=== PATIENT | female | born 1985 | race Caucasian/White ===

== ENCOUNTER → 2020-07-01 13:24 | Outpatient (CLI) | payer OTHER, SELFPAY ==
[2020-07-01 17:00] LABS: COVID19 -Nasal RAPID Negative (Negative)
== END ==
PROVIDERS: Visit Provider Student in an Organized Health Care Education/Training Program
DX: Z20.822 Contact with and (suspected) exposure to COVID-19 (principal)
CPT/HCPCS: 87635

== ENCOUNTER 2020-07-04 10:26 | Day surgery (SDC) | payer OTHER, SELFPAY ==
[2020-07-04] VITALS (8 sets, daily range): BP systolic 98–137; BP diastolic 58–76; PULSE 54–91; RESP 8–18; TEMP 36.2–36.8; O2SAT 94–100; BMI 23.3
[2020-07-04] MEDS: ACETAMINOPHEN 325 MG TABLET 975 MG PO (11:20)
[2020-07-04] MEDS: SCOPOLAMINE 1 PATCH TOP (11:49)
--- NOTE | 2020-07-04 13:56 | PM.PREOP ---
Pre-operative Note COVID-19 COVID-19 status: Negative Result date/Date tested (Pos, Neg/Pending): 07/01/20 Interval Note History & Physical reviewed/Exam performed by Physician: Yes Changes to H&P: No
--- NOTE | 2020-07-04 13:57 | P.HP_ITS ---
History of Present Illness History of Present Illness Date Patient Seen: 07/04/20 Time Patient Seen: 13:57 Chief complaint: Chronic tonsillitis, tonsil stones Narrative: 35-year-old female with chronic tonsillitis, tonsil stones, and halitosis, unresponsive to medical therapy, presents for tonsillectomy and possible adenoidectomy. She was last seen in clinic 05/30/2020, note reviewed, no interval health changes, no recent cough, cold, or fever. Some intolerance to narcotic with surgery in the past but open to a prescription for some oxycodone if necessary. Patient History Medical History Anxiety Family & Social History Social History: household members spouse Tobacco & Substance use: Smoking Status Never smoker alcohol intake current alcohol intake frequency a few times a week Substance Use Type does not use Meds Home Medications and Allergies Home Medications Medication Instructions Recorded Confirmed Type sertraline 100 mg PO DAILY 07/03/20 07/04/20 History propranolol 40 mg PO PRN PRN 07/04/20 07/04/20 History Allergies Allergy/AdvReac Type Severity Reaction Status Date / Time No Known Drug Allergies Allergy Verified 07/04/20 11:19 Review of Systems Review of Systems ROS: Yes All systems reviewed with the patient and are negative except as otherwise documented Exam Vital Signs (past 8 hours): - 07/04/20 11:13 Temperature 98.2 F Pulse Rate 70 Respiratory Rate 18 Blood Pressure 98/63 Pulse Oximetry 98 Oxygen Delivery Method Room Air Narrative Exam Narrative: Well-developed well-nourished female, no acute distress. Heart regular rate and rhythm without murmur, lungs clear to auscultation bilaterally Assessment & Plan Assessment & Plan narrative: Assessment: 1. Chronic tonsillitis 2. Tonsil stone s 3. Halitosis Plan: Following discussion of the material risks benefits complications and alternatives, she elected to proceed with tonsillectomy and possible adenoidectomy.
--- NOTE | 2020-07-04 14:00 | P.OP_ITS ---
Operative Date/Time/Diagnoses Date of procedure: 07/04/20 Time of procedure: 14:44 Pre-op diagnosis: Chronic tonsillitis, tonsil stones, halitosis Post-op diagnosis: same Procedure & Clinicians Procedure: Tonsillectomy and adenoidectomy Same procedure as scheduled: Yes Indications: 35-year-old female with the above diagnoses incompletely managed with medical therapy presents for tonsillectomy and possible adenoidectomy. Following discussion of the material risks benefits complications and alternatives, she elected to proceed. Surgeon: Florentino Smith Click Yes if Unassisted: Yes Anesthesia Type: General and Local Operative Notes Findings: Intact palate, single uvula, 2+ tonsils with stones, 2+ adenoids Closure Type: not applicable Specimen(s): none sent Estimated Blood Loss (mL): 20 Procedure in detail: Following identification and confirmation of consent the patient was brought to the operating room suite and placed in the supine position. General endotracheal anesthesia was administered. A head wrap, shoulder roll, and mouth gag were placed and a red rubber catheter was inserted through the nostril and out the mouth to retract the soft palate. Partially obstructive adenoid tissue was ablated with suction electrocautery on a setting of 40, without injury to the eustachian tube orifices or choana. The left tonsil was retracted medially and suction electrocautery on a setting of 30 was used to dissect the tonsil in a subcapsular plane, followed by hemos tasis with the same. This process was repeated on the right side with identical findings. The tonsillar fossae were superficially infiltrated bilaterally with a 1:1 mixture of 1% lidocaine 1 100,000 epinephrine and 0.25% Marcaine 1 to [id number] epinephrine. Mouth gag and rubber catheter were removed and the patient was extubated in the operating room and taken to the recovery room in stable condition without known complication. Complications: none Post-operative Condition: stable Disposition: same day surgery Plan for aftercare: Tylenol alternating with Advil every 3 hours for baseline pain control, oxycodone if desired for breakthrough pain. Aim for 4 L of fluid daily, soft diet 2 weeks, call with any questions
--- NOTE | 2020-07-04 14:27 | SUR.OPER ---
Supine on padded OR bed, head on gel doughnut, arms secured on padded arm boards at <90 degrees abduction, legs uncrossed, safety belt at thigh, tape over blanket over lower legs.
[2020-07-04] MEDS: BUPIVACAINE 0.25% W/ EPI 30 ML VIAL INJ (14:31)
[2020-07-04] MEDS: LIDOCAINE 1% W/EPI 20 ML INJ (14:31)
--- NOTE | 2020-07-04 15:01 | SUR.PHASEI ---
Received to PACU at 1448. Report received from Dr Michael and SHAMIKA Elam. Oral airway in place with jaw thrust performed by Dr Michael for several minutes. O2 sats 80% on room air. Placed on 6LNC via oral airway with O2 sats improved to 94-100%.
== END 2020-07-04 16:15 | disposition home or self-care (01) ==
PROVIDERS: Referring Provider Otolaryngology; Visit Provider Otolaryngology
PROC: (CPT 42821; principal; 2020-07-04 12:15)
DX: J35.01 Chronic tonsillitis (principal); J35.8 Other chronic diseases of tonsils and adenoids
CPT/HCPCS: 42821; J0330; J1100; J2250; J2405; J2704; J3010